=== PATIENT | female | born 2000 | race Caucasian/White ===

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

== ENCOUNTER → 2025-07-12 | Outpatient (CLI) | payer BC, OTHER ==
[~2025-07-12] MED LIST changes: +BENZ5LIQ14 TOP; -MELA5TAB17 PO; +MELA5TAB36 PO; +SULF400T15 PO
[2025-07-12 17:11] LABS: PLATELET COUNT, AUTOMATED 235 10^3/uL (150-450)
[2025-07-12 17:46] LABS: HIV 1&2 SCREEN NEGATIVE (NEGATIVE)
[2025-07-12 17:54] LABS: HEPATITIS C VIRUS ABY INDEX < 0.02 INDEX (<0.8)
[2025-07-12 18:04] LABS: Trichomonas vaginalis (AMP) NOT DETECTED (NEGATIVE)
[2025-07-12 18:28] LABS: GC DNA AMPLIFICATION NEGATIVE (NEGATIVE)
== END ==
LOC: M PLALAB 13:10
PROVIDERS: ATTEND Advanced Practice Midwife
DX: Z34.80 Encounter for supervision of other normal pregnancy, unspecified trimester (principal); Z3A.00 Weeks of gestation of pregnancy not specified

== ENCOUNTER → 2025-07-28 | Outpatient (REF) | payer BC, OTHER ==
[2025-07-28 13:55] LABS: Trichomonas vaginalis (AMP) NOT DETECTED (NEGATIVE)
[2025-07-28 14:19] LABS: GC DNA AMPLIFICATION NEGATIVE (NEGATIVE)
== END ==
LOC: M SFHCWAGY 10:12
PROVIDERS: ATTEND Advanced Practice Midwife
DX: Z86.19 Personal history of other infectious and parasitic diseases (principal)